=== PATIENT | female | born 1965 | race Caucasian/White ===

== ENCOUNTER → 2021-05-29 | Outpatient (CLI) | payer BC | END | disposition home or self-care (01) | LOC: RAH 11:36 | PROVIDERS: ATTEND Internal Medicine | DX: E03.9 Hypothyroidism, unspecified (principal) | CPT/HCPCS: 76536 ==

== ENCOUNTER → 2023-07-24 | Outpatient (CLI) | payer BC | END | disposition home or self-care (01) | LOC: RAH 15:08 | PROVIDERS: ATTEND Internal Medicine | DX: M71.21 Synovial cyst of popliteal space [Baker], right knee (principal); M79.604 Pain in right leg; R22.41 Localized swelling, mass and lump, right lower limb | CPT/HCPCS: 93971 ==

== ENCOUNTER 2024-02-12 07:03 | Day surgery (SDC) | payer BC ==
[2024-02-10 14:32] VITALS: BP 145/66; PULSE 75; RESP 18; TEMP 97.2
[2024-02-10 14:36] LABS: BASOPHILS # (AUTO) 0.05 K/uL (0.00-0.20); BASOPHILS % (AUTO) 0.7 % (0.0-5.0); EOSINOPHILS % (AUTO) 2.7 % (0.0-8.0); HEMATOCRIT 39.8 % (36-48); IMMATURE GRANULOCYTE ABSOLUTE 0.03 K/uL (0-1); LYMPHOCYTES # (AUTO) 2.4 K/uL (1.0-4.8); LYMPHOCYTES % (AUTO) 32.8 % (21.0-51.0); MEAN CORPUSCULAR HGB CONC 30.4 g/dL (32.0-36.0); MEAN CORPUSCULAR VOLUME 85.6 fL (79-99); MONOCYTES # (AUTO) 0.6 K/uL (0.1-1.0); MONOCYTES % (AUTO) 8.2 % (3.0-13.0); NEUTROPHILS # (AUTO) 4.1 K/uL (1.8-7.7); NEUTROPHILS % (AUTO) 55.2 % (40.0-77.0); PLATELET COUNT (AUTO) 321 K/uL (130-400); RED BLOOD CELL COUNT(AUTO) 4.65 MIL/uL (4.00-5.50); RED CELL DISTRIBUTION WIDTH 14.2 % (11.0-15.5); WHITE BLOOD COUNT (AUTO) 7.5 K/uL (4.8-10.8)
[2024-02-10 14:49] LABS: INR 0.94 (0.85-1.15); PROTHROMBIN TIME 10.6 SEC (9.6-11.6)
[2024-02-10 14:50] LABS: PARTIAL THROMBOPLASTIN TIME 27.6 SEC (26.3-35.5)
[2024-02-10 14:54] LABS: CREATININE 0.8 mg/dL (0.5-1.0); POTASSIUM 3.9 mmol/L (3.5-5.1)
[~2024-02-12] VITALS: Ht 165.1 cm; Wt 106.1 kg
[2024-02-12] VITALS (16 sets, daily range): BP systolic 130–173; BP diastolic 71–94; PULSE 70–92; RESP 15–20; TEMP 96.6–98
[~2024-02-12 07:03] MED LIST: ESOM40CA66 PO; FLUT16H NASAL; LEVO100C4 PO
[2024-02-12] MEDS ORDERED: SUCCINYLCHOLINE CHLORIDE 20 MG/ML 10 ML VIAL ONE (07:06)
[2024-02-12] MEDS ORDERED: dexaMETHasone SOD PHOSPHATE 10MG/ML 1ML VIAL ONE (07:06)
[2024-02-12] MEDS ORDERED: LIDOCAINE PF 100MG/5ML (2%) SYRINGE 5ML ONE (07:06)
[2024-02-12] MEDS ORDERED: NEOSTIGMINE METHYLSULFATE 1MG/ML IV ONE (07:07)
[2024-02-12] MEDS ORDERED: ondanSETRON 4MG INJ ONE ×2 (07:07→10:25)
[2024-02-12] MEDS ORDERED: GLYCOPYRROLATE 0.2 MG/ML 5 ML VIAL ONE (07:07)
[2024-02-12] MEDS ORDERED: rocuRONium bROMide 10MG/1ML 5ML VL ONE (07:07)
[2024-02-12] MEDS ORDERED: proPOFol 10 MG/ML 20ML VIAL IV ONE (07:07)
[2024-02-12] MEDS ORDERED: FENTanyl CITRate PF 50 MCG/1 ML 2ML VIAL ONE ×2 (07:10→10:52)
[2024-02-12] MEDS ORDERED: MIDAZOLAM HCL 1 MG/ML 2ML VIAL ONE (07:10)
[2024-02-12] MEDS: LACTATED RINGERS 1000ML 1,000 ML IV ONE (07:45)
[2024-02-12] MEDS: SCOPOLAMINE HYDROBROMIDE 1 EACH ADH..PATCH TD ONE (07:45)
[2024-02-12] MEDS: ceFAZolin SODIUM 2 GM VIAL ONE (07:45)
[2024-02-12] MEDS ORDERED: BUPIvacaine/PF 0.25% 30ML VIAL IJ ONE (08:38)
[2024-02-12] MEDS ORDERED: EPINEPHrine 1 MG/ML 30ML VIAL IJ ONE (08:38)
[2024-02-12] MEDS: BUPIVACAINE 0.25% IJ ONE ×2 (11:05)
[2024-02-12] MEDS ORDERED: ACET-2079 PO (11:48)
[2024-02-12] MEDS: MEPERIDINE-PF 50 MG/ML SYG ONE (12:13)
--- NOTE | 2024-02-12 17:24 | OP ---
Operative Note: DATE OF PROCEDURE: 02/12/24 SURGEON: CARISSA CHURCH MD GRAND SCRIBE: ALEXEY SUE ANESTHESIA: General ANESTHESIOLOGIST/LEAD [employer] J[employer] DEVELOPER: Francisco Hartley PREOPERATIVE DIAGNOSIS: Right knee medial meniscal tear, osteoarthritis POSTOPERATIVE DIAGNOSIS: Right knee degenerative medial meniscal tear, osteoarthritis PROCEDURE: Right knee arthroscopy with partial medial meniscectomy ESTIMATED BLOOD LOSS: 2 cc FINDINGS: Patellofemoral compartment with some grade 2 chondromalacia of the patella on the lateral facet grade three on the trochlea and medial facet. More diffuse grade 2 of the trochlea with slight lateral tracking of the patella. Lateral gutter with no loose bodies. Lateral compartment with degenerative fraying of the meniscus some grade 2-3 chondromalacia of the tibial plateau and some diffuse grade 1 on the femur. Notch with ACL intact. Medial compartment with intact medial meniscus anterior horn and body and a degenerative tearing of the posterior horn of the medial meniscus. Large lesions of the cartilage on the medial femoral condyle consistent with grade 3-4 lesions on the weight- bearing surface of the femur. Diffuse grade 2 and focal grade 3 chondromalacia of the medial tibial plateau. INDICATIONS: 58-year-old female with history of right knee pain and popping. Patient was found on MRI to have a medial meniscal tear in the posterior horn that was thought to extend into the body. After discussion of the risks, benefits, alternatives, in addition to the limited improvement due to underlying arthritis, the patient voluntarily agreed to undergo the aforementioned procedure. DESCRIPTION OF PROCEDURE: Patient was properly identified in the preoperative holding area. Surgical site marking was verified and surgery consent reviewed. The patient was then taken to the operating room and placed in supine position on the OR table. After induction of general anesthesia, preoperative antibiotics were given, all bony prominences were well-padded, and a well padded tourniquet was applied but not inflated at this time. The right lower extremity was then prepped and draped in usual sterile fashion. Surgical timeout was done verifying correct surgery, side, site, and location to be performed. We then began the procedure by making a standard anterolateral portal with an 11 blade and inserted our arthroscope through here. We made our anterior medial portal under direct visualization using spinal needle for localization. We then inserted our probe and performed our diagnostic arthroscopy with the above mentioned findings. At this point we inserted our meniscal biters and performed our medial meniscal debridement in the posterior horn. We then inserted the shaver and further debrided the medial meniscus Once we were happy with our debridement, we then thoroughly irrigated out the wound with normal saline. We removed as much fluid from the knee as possible. We then injected local anesthetic within the capsule of the joint as well as around the portal sites. Our portal sites were then repaired using 3-0 nylon in simple fashion. Sterile dressing was then applied consisting of Xeroform, 4 x 4's, ABD, cast padding, and an Savage wrap. The patient was then awakened from anesthesia and taken to recovery room in stable condition. CARISSA CHURCH MD Feb 12, 2024 17:24
== END 2024-02-12 13:50 | disposition home or self-care (01) ==
LOC: DAH 07:03
PROVIDERS: ATTEND Student in an Organized Health Care Education/Training Program
DX: M23.321 Other meniscus derangements, posterior horn of medial meniscus, right knee (principal); M17.11 Unilateral primary osteoarthritis, right knee; M94.261 Chondromalacia, right knee; E03.9 Hypothyroidism, unspecified; K21.9 Gastro-esophageal reflux disease without esophagitis; E66.9 Obesity, unspecified; Z90.89 Acquired absence of other organs; Z90.49 Acquired absence of other specified parts of digestive tract; Z98.890 Other specified postprocedural states; Z68.39 Body mass index [BMI] 39.0-39.9, adult; Z79.01 Long term (current) use of anticoagulants; Z79.899 Other long term (current) drug therapy
CPT/HCPCS: 80048; 85025; 85610; 85730; 84134; 36415; 29881; 97161; 97116; 97530; A6260; A4663; J7120; J3010 ×2; J1100; J0665 ×2; J0330; J3490 ×2; J2003; J2250; J2704; J2405 ×2; J2710; J2175; J0690 ×2; A5120; A4215; A4223; A4222; A4221; J0171; A4649; A4930; A6223; A6450